=== PATIENT | female | born 1940 | race Caucasian/White ===

== ENCOUNTER 2017-07-02 11:48 | Emergency (ER) | payer MEDICARE, OTHER ==
[~2017-07-02] VITALS: Ht 162.6 cm; Wt 59.0 kg
[2017-07-02 12:58] LABS: ABSOLUTE BASOPHILS 0.1 thou/uL (0.0-0.2); ABSOLUTE EOSINOPHILS 0.4 thou/uL (0.0-0.7); ABSOLUTE LYMPHOCYTES 2.3 thou/uL (0.8-5.3); ABSOLUTE MONOCYTES 0.6 thou/uL (0.0-1.2); ABSOLUTE NEUTROPHILS 3.9 thou/uL (1.6-8.1); BASOPHILS 0.9 %; EOSINOPHILS 6.1 %; HEMOGLOBIN 15.5 gm/dL (12.0-15.0); LYMPHOCYTES 31.1 %; MCHC 34.4 g/dL (28.0-37.0); MONOCYTES 7.7 %; MPV 8.2 fl. (7.2-11.1); NUCLEATED RBCS 0 /100WBC; PLATELET COUNT* 220 thou/uL (150-400); POLYS 54.2 %; RBC 4.84 mil/uL (4.20-5.00); RDW-CV 13.4 % (10.5-14.5); WBC 7.3 thou/uL (4.0-11.0)
[2017-07-02 13:13] LABS: INR 1.1; PROTIME 10.4 Seconds (9.20-11.50)
[2017-07-02 13:15] LABS: ANION GAP 3 mmol/L (7-16); BUN 15 mg/dL (7-18); CALCIUM 9.3 mg/dL (8.5-10.1); CHLORIDE 102 mmol/L (98-107); CO2 32 mmol/L (21-32); CREATININE 0.9 mg/dL (0.6-1.3); GLUCOSE 90 mg/dL (70-99); SODIUM 137 mmol/L (136-145)
[2017-07-02 13:26] LABS: ALBUMIN 4.1 g/dL (3.4-5.0); ALKALINE PHOSPHATASE 78 U/L (46-116); LIPASE 68 U/L (73-393); NT-PRO BRAIN NAT PEPTIDE 341 pg/mL (<300); SGOT 18 U/L (15-37); SGPT 13 U/L (30-65); TOTAL BILIRUBIN 0.9 mg/dL (<0.1-1.0); TROPONIN-I LEVEL <0.06 ng/mL (<0.06)
[2017-07-02] MEDS ORDERED: NORVASC10 MG PO (14:16)
[2017-07-02 14:21] VITALS: BP 174/99
--- NOTE | 2017-07-03 06:20 | EKG ---
[place] [address] ELECTROCARDIOGRAM REPORT Name: MICHELLE RIVERS Room: [facility]#: [id number] Admission: 07/02/17 Attend Phys: Discharge: 07/02/17 Date of : 38 Report #: [id number] THIS REPORT FOR: //name// [facility] ED Test Date: 2017-07-02 Test Time: 12:36:15 Pat Name: MICHELLE RIVERS Department: Room: Gender: F [employer] Operator: Scarlet PACK : [id number] Requested By: Florian Lopes Order Number: [id number] MD: Vasquez Pagan Measurements Intervals [place] Rate: 61 P: 33 VA: 175 QRS: -26 QRSD: 96 T: 43 QT: 397 QTc: 400 Interpretive Statements Sinus rhythm Borderline left axis deviation Abnormal R-wave progression, late transition No previous ECG available for comparison Electronically Signed On 07-03-2017 6:20:02 BRUSH HOLDER INSPECTOR by Vasquez Pagan [email or web address] <ELECTRONICALLY SIGNED> By: Vasquez Pagan MD, [facility] 07/03/17 0620 1236 1236 Vasquez Pagan MD, FACC /EPI
== END 2017-07-02 14:22 | disposition home or self-care (01) ==
LOC: M.ERS 11:48 → EDSEX 11:48 → M.ERS 11:48
PROVIDERS: Emergency Medicine
DX: I10 Essential (primary) hypertension (principal); F41.9 Anxiety disorder, unspecified; Z96.642 Presence of left artificial hip joint

== ENCOUNTER → 2017-07-30 | Outpatient (CLI) | payer MEDICARE, OTHER ==
[~2017-07-30] MED LIST: ANXIETY MED; NORVASC10 MG PO
--- NOTE | 2017-07-30 13:47 | 2DMMODE ---
[place] [address] 2 D/M-MODE ECHOCARDIOGRAM Name: MICHELLE RIVERS Room: [facility]#: [id number] Admission: 07/30/17 Attend Phys: Betty Miguel Discharge: Date of : 38 Date of Service: 07/30/17 1347 Report #: [id number] THIS REPORT FOR: //name// APPROVED REPORT Study performed: 07/30/2017 10:01:59 EXAM: Comprehensive 2D, Doppler, and color-flow Echocardiogram Patient Location: Out-Patient Status: routine BSA: 1.63 HR: 75 bpm BP: 102/60 mmHg Other Information Study Quality: Good Indications Murmur 2D Dimensions LVEF(%): 67.58 (>50%) IVSd: 11.25 (7-11mm) LVOT Diam: 19.32 (18-24mm) LVDd: 35.00 mm PWd: 9.10 (7-11mm) Ascending Ao: 41.19 (22-36mm) LVDs: 22.15 (25-40mm) Aortic Root: 21.29 mm Pretty's LVEF: 67.58 % Volumes Left Atrial Volume (Systole) LA ESV Index: 11.80 mL/m2 Aortic Valve AoV Peak Mg.: 2.73 m/s AO Peak Gr.: 29.78 mmHg LVOT Max P.48 mmHg AO Mean Gr.: 18.12 mmHg LVOT Mean P.62 mmHg LVOT Max V: 1.17 m/s AO V2 VTI: 56.67 cm LVOT Mean V: 0.74 m/s DYLAN (VTI): 1.35 cm2 LVOT V1 VTI: 26.14 cm AI Glades: 1.14 m/s2 AI PHT: 576.01 [place] [address] 2 D/M-MODE ECHOCARDIOGRAM Name: MICHELLE RIVERS Room: [facility]#: [id number] Admission: 07/30/17 Attend Phys: Betty Miguel Discharge: Date of : 38 Date of Service: 07/30/17 1347 Report #: [id number] E/A Ratio: 0.59 MV Decel. Time: 368.81 ms MV E Max Mg.: 0.50 m/s MV PHT: 106.95 ms MVA (PHT): 2.06 cm2 TDI E/Lateral E': 8.33 E/Medial E': 8.33 Medial E' Mg.: 0.06 m/s Lateral E' Mg.: 0.06 m/s Pulmonary Valve PV Peak Mg.: 1.00 m/s PV Peak Gr.: 4.02 mmHg Tricuspid Valve TR Peak Gr.: 15.30 mmHg RVSP: 20.30 mmHg Left Ventricle The left ventricle is normal size. There is normal LV segmental wall motion. There is normal left ventricular wall thickness. Left ventricular systolic function is normal. LVEF is 60-65%. Grade I - abnormal relaxation pattern. Right Ventricle The right ventricle is normal size. The right ventricular systolic function is normal. Atria The left atrium size is normal. The right atrium size is normal. Aortic Valve Aortic valve is calcified. Mild aortic regurgitation. Moderate aortic stenosis. Mitral Valve The mitral valve is normal in structure. Trace mitral regurgitation. No evidence of mitral valve stenosis. Tricuspid Valve The tricuspid valve is normal in structure. Mild tricuspid regurgitation. The RVSP is __20.3 mmHg. Pulmonic Valve The pulmonary valve is normal in structure. There is no pulmon[place] [address] 2 D/M-MODE ECHOCARDIOGRAM Name: MICHELLE RIVERS Room: [facility]#: [id number] Admission: 07/30/17 Attend Phys: Betty Miguel Discharge: Date of : 38 Date of Service: 07/30/17 1347 Report #: [id number] Great Vessels Aortic root is moderately dilated. IVC is normal in size and collapses with >50% inspiration Pericardium There is no pericardial effusion. <Conclusion> The left ventricle is normal size. There is normal left ventricular wall thickness. Left ventricular systolic function is normal. LVEF is 60-65%. Grade I - abnormal relaxation pattern. Aortic valve is calcified. Mild aortic regurgitation. Moderate aortic stenosis. Trace mitral regurgitation. Mild tricuspid regurgitation. The RVSP is __20.3 mmHg. Aortic root is moderately dilated. <ELECTRONICALLY SIGNED> By: Vasquez Pagan MD, FACC 07/30/17 1347 134 134 Vasquez Pagan MD, FACC /INF
== END ==
LOC: M.CRD 09:38
DX: I08.2 Rheumatic disorders of both aortic and tricuspid valves (principal); I10 Essential (primary) hypertension; R79.89 Other specified abnormal findings of blood chemistry; R93.8 Abnormal findings on diagnostic imaging of other specified body structures

== ENCOUNTER 2017-11-07 10:20 | Emergency (ER) | payer MEDICARE, OTHER ==
[~2017-11-07] VITALS: Ht 162.6 cm; Wt 59.0 kg
[~2017-11-07 10:20] MED LIST changes: -ANXIETY MED
[2017-11-07 10:21] VITALS: BP 148/95
[2017-11-07] MEDS ORDERED: ANXIETY MED (10:27)
[2017-11-07 10:50] LABS: HEMATOCRIT 41.4 % (37.0-47.0); MCH 31.4 pg (26.0-34.0); MCHC 33.8 g/dL (28.0-37.0); MCV 92.7 fL (80.0-100.0); MPV 8.2 fl. (7.2-11.1); RBC 4.47 mil/uL (4.20-5.00); RDW-CV 12.9 % (10.5-14.5); WBC 6.6 thou/uL (4.0-11.0)
[2017-11-07 10:51] LABS: URINE BILIRUBIN NEGATIVE (Negative); URINE BLOOD NEGATIVE (Negative); URINE CLARITY CLEAR; URINE COLOR YELLOW; URINE GLUCOSE-RANDOM NEGATIVE (Negative); URINE KETONES TRACE (Negative); URINE LEUKOCYTES TRACE (Negative); URINE NITRITE NEGATIVE (Negative); URINE PROTEIN TRACE (Negative); URINE UROBILINOGEN 0.2 E.U./dl (0.2-1.0)
[2017-11-07 11:04] LABS: SQUAMOUS 4-10 Moderate /LPF (0-3); URINE WBC 0-5 Rare /HPF (0-5)
[2017-11-07 11:05] LABS: BACTERIA None Seen /HPF (None Seen); CRYSTALS None Seen /LPF (None Seen); HYALINE CASTS 0-3 Few /LPF (None Seen); MUCUS 0-3 Light strn/LPF (None Seen); URINE RBC 0-2 Rare /HPF (0-2)
[2017-11-07 11:06] LABS: CALCIUM 9.5 mg/dL (8.5-10.1); CREATININE 1.1 mg/dL (0.6-1.3); POTASSIUM 4.2 mmol/L (3.5-5.1)
[2017-11-07 11:12] LABS: ALBUMIN 3.9 g/dL (3.4-5.0); TOTAL BILIRUBIN 0.9 mg/dL (<0.1-1.0); TOTAL PROTEIN 7.3 g/dL (6.4-8.2)
--- NOTE | 2017-11-07 11:50 | NUR ---
PT BACK FROM CT AT THIS TIME
[2017-11-07 15:02] VITALS: BP 167/103
== END 2017-11-07 15:02 | disposition home or self-care (01) ==
LOC: M.ERS 10:20 → M.TBA-ER 13:18 → M.ERS 13:18
PROVIDERS: Emergency Medicine Emergency Medical Services
DX: S61.011A Laceration without foreign body of right thumb without damage to nail, initial encounter (principal); F41.9 Anxiety disorder, unspecified; Z96.642 Presence of left artificial hip joint; W07.XXXA Fall from chair, initial encounter; Y93.89 Activity, other specified; Y92.89 Other specified places as the place of occurrence of the external cause; Y99.8 Other external cause status

== ENCOUNTER 2018-06-24 01:57 | Emergency (ER) | payer MEDICARE, OTHER ==
[~2018-06-24] VITALS: Ht 162.6 cm; Wt 59.0 kg
[~2018-06-24 01:57] MED LIST changes: +ANXIETY MED
[2018-06-24] MEDS ORDERED: EYE ALLERGY REL15 M1 (02:04)
[2018-06-24 04:46] VITALS: BP 162/97
== END 2018-06-24 04:48 | disposition home or self-care (01) ==
LOC: M.ERS 01:57
DX: S51.811A Laceration without foreign body of right forearm, initial encounter (principal); F41.9 Anxiety disorder, unspecified; Z96.642 Presence of left artificial hip joint; W06.XXXA Fall from bed, initial encounter; Y93.89 Activity, other specified; Y92.89 Other specified places as the place of occurrence of the external cause; Y99.8 Other external cause status